=== PATIENT | female | born 1965 | race Caucasian/White ===

== ENCOUNTER 2018-04-24 19:24 | Emergency (ER) | payer SELFPAY ==
[~2018-04-24] VITALS: Ht 162.6 cm; Wt 75.0 kg
[2018-04-25] MEDS ORDERED: IBUPROFEN 600MG TABLET PO STA (01:47)
[2018-04-25 03:26] LABS: CLARITY URINE CLEAR (CLEAR); COLOR URINE YELLOW (YELLOW); KETONES URINE NEGATIVE (NEGATIVE); LEUKOCYTE ESTERASE URINE 2+ (NEGATIVE); NITRITE URINE NEGATIVE (NEGATIVE); OCCULT BLOOD URINE NEGATIVE (NEGATIVE); PROTEIN URINE NEGATIVE (NEGATIVE); SPECIFIC GRAVITY URINE 1.018 (1.005-1.030); UROBILINOGEN URINE 0.2 E.U./dL (0.2-1.0)
[2018-04-25 04:39] VITALS: BP 137/78
== END 2018-04-25 04:40 | disposition home or self-care (01) ==
LOC: ER 19:24
DX: R07.81 Pleurodynia (principal); S50.312A Abrasion of left elbow, initial encounter; N39.0 Urinary tract infection, site not specified; I10 Essential (primary) hypertension; F41.9 Anxiety disorder, unspecified; Y08.89XA Assault by other specified means, initial encounter; Y93.9 Activity, unspecified; Y92.9 Unspecified place or not applicable
CPT/HCPCS: 71101; 81025; 87077; 87186; 99284

== ENCOUNTER 2018-12-17 17:13 | Emergency (ER) | payer MEDICAID ==
[~2018-12-17] VITALS: Ht 154.9 cm; Wt 75.0 kg
[2018-12-17] MEDS ORDERED: IBUPROFEN 600MG TABLET PO ONE (17:45)
[2018-12-17 18:45] VITALS: BP 131/72
== END 2018-12-17 18:45 | disposition home or self-care (01) ==
LOC: ER 17:13
DX: S20.212A Contusion of left front wall of thorax, initial encounter (principal); S20.211A Contusion of right front wall of thorax, initial encounter; F41.9 Anxiety disorder, unspecified; I10 Essential (primary) hypertension; E11.9 Type 2 diabetes mellitus without complications; Y04.0XXA Assault by unarmed brawl or fight, initial encounter; Y07.03 Male partner, perpetrator of maltreatment and neglect; Y93.89 Activity, other specified; Y92.018 Other place in single-family (private) house as the place of occurrence of the external cause
CPT/HCPCS: 71045; 93005; 99283